=== PATIENT | male | born 1985 | race Caucasian/White ===

== ENCOUNTER 2017-06-19 19:45 | Emergency (ER) | payer BC ==
--- NOTE | 2017-06-19 20:39 | ER Document Report ---
ED General - General Chief Complaint: Skin Problem Stated Complaint: SKIN ISSUE Time Seen by Provider: 06/19/17 20:04 Notes: Patient is a 31 year old male who presents to the ED complaining of rash for one week. He states he started prozac, cardizem, prilosec at the end of April for PVC's. He states he was doing well until last week when he had gradual onset of rash on his face, back and extremities with facial swelling that has improved over the week after steroids and antiinflammatories. He otherwise admits to one episode of syncope because he stood up to fast. Otherwise denies dizzyness, chest pain, nausea, joint pain TRAVEL OUTSIDE OF THE [place] IN LAST 30 DAYS: No - Related Data Allergies/Adverse Reactions: No Known Allergies Allergy (Verified 06/19/17 19:45) Past Medical History - Social History Smoking Status: Never Smoker Family History: Reviewed & Not Pertinent Review of Systems - Review of Systems Constitutional: No symptoms reported EENT: No symptoms reported Cardiovascular: No symptoms reported Respiratory: No symptoms reported Gastrointestinal: No symptoms reported Musculoskeletal: No symptoms reported Skin: See HPI Neurological/Psychological: See HPI -: Yes All other systems reviewed and negative Physical Exam - Vital signs Vitals: Temp Pulse Resp BP Pulse Ox 98.1 F 99 18 110/68 97 06/19/17 19:51 06/19/17 19:51 06/19/17 19:51 06/19/17 19:51 06/19/17 19:51 - Notes Notes: PHYSICAL EXAM GENERAL: Alert, interacts well. HEAD: Normocephalic, atraumatic. EYES: Pupils equal, round, and reactive to light. Extraocular movements intact. LUNGS: Clear to auscultation bilaterally, no wheezes, rales, or rhonchi. No respiratory distress. HEART: Regular rate and rhythm. No murmurs, gallops, or rubs. ABDOMEN: Soft, nondistended, nontender. No guarding, rebound, or rigidity.. Bowel sounds present in all 4 quadrants. EXTREMITIES: Moves all 4 extremities spontaneously. No edema, radial and dorsalis pedis pulses 2/4 bilaterally. No cyanosis. NEUROLOGICAL: Alert and oriented x4. Normal speech. PSYCH: Normal affect, normal mood. SKIN: Warm, dry, normal turgor. No evidence of malar rash. Diffuse blanching rash along hands UE's, back, mild erythema on face Course - Re-evaluation Re-evalutation: 06/19/17 22:33 Patient is a 31 year old male who is hemodynamically stable, no acute distress and afebrile. Presentation is likely related to drug reaction most likely with his Prozac. Low clinical suspicion for lupus flare given no evidence of leukopenia, malar rash or joint pain. No evidence of EKG changes or concerns for persistent PVCs on monitor. Troponin negative, Heart score less than 3. Discussed with patient to discontinue his Prozac and follow-up with his primary care provider tomorrow as scheduled. Patient agrees with plan stable for discharge home. Regarding his syncope, consistent with vasovagal syncope - Vital Signs Vital signs: Temp Pulse Resp BP Pulse Ox 98.1 F 99 12 122/78 98 06/19/17 19:51 06/19/17 19:51 06/19/17 22:01 06/19/17 22:01 06/19/17 22:01 - Laboratory Result Diagrams: 06/19/17 20:55 06/19/17 20:55 Laboratory results interpreted by me: 06/19/17 06/19/17 20:55 20:55 WBC 12.8 H RBC 5.79 H Hgb 17.6 H Absolute Neutrophils 8.8 H C-Reactive Protein 17.9 H - EKG Interpretation by Nm EKG shows normal: Sinus rhythm Rate: Normal Rhythm: NSR When compared to previous EKG there are: No significant change Discharge - Discharge Clinical Impression: Rash Syncope Qualifiers: Syncope type: vasovagal syncope Qualified Code(s): R55 - Syncope and collapse Condition: Good Disposition: HOME, SELF-CARE Instructions: Syncopal Episode ([facility]) Additional Instructions: Your rash today is likely related to one of your new medications. I recommend to stop taking your prozac and follow up with your primary care provider tomorrow as scheduled. Forms: Return to Work
[2017-06-19 21:14] LABS: ABSOLUTE EOSINOPHILS # (AUTO) 0.1 10^3/uL (0.0-0.6); ABSOLUTE MONOCYTES (AUTO) 0.8 10^3/uL (0.1-1.4); ABSOLUTE NEUT (AUTO) 8.8 10^3/uL (1.7-8.2); BASOPHILS % (AUTO) 0.3 % (0-2); EOSINOPHILS % (AUTO) 1.1 % (0-6); HEMOGLOBIN 17.6 g/dL (13.5-17.0); LYMPHOCYTES % (AUTO) 23.2 % (13-45); MEAN CORPUSCULAR HEMOGLOBIN 30.3 pg (27.0-33.4); MEAN CORPUSCULAR HGB CONC 35.1 g/dL (32.0-36.0); MEAN CORPUSCULAR VOLUME 86 fl (80-97); MONOCYTES % (AUTO) 6.4 % (3-13); PLATELET COUNT 240 10^3/uL (150-450); RED BLOOD COUNT 5.79 10^6/uL (4.35-5.55); TOTAL CELLS COUNTED % (AUTO) 100 %; WHITE BLOOD COUNT 12.8 10^3/uL (4.0-10.5)
[2017-06-19 21:28] LABS: ANION GAP 10 (5-19); BLOOD UREA NITROGEN 13 mg/dL (7-20); C-REACTIVE PROTEIN 17.9 mg/L (<10.0); CALCIUM 9.1 mg/dL (8.4-10.2); CARBON DIOXIDE 27 mmol/L (22-30); CHLORIDE 102 mmol/L (98-107); GLUCOSE 91 mg/dL (75-110); POTASSIUM 3.6 mmol/L (3.6-5.0); SODIUM 138.9 mmol/L (137-145)
[2017-06-19 21:52] LABS: ERYTHROCYTE SEDIMENTATION RATE 3 mm/hr (0-15)
[2017-06-19] MEDS ORDERED: FAMOTIDINE 20 MG TABLET PO ONE (21:57)
[2017-06-19] MEDS ORDERED: METHYLPREDNISOLONE INJ 125 MG/2 ML SDV IM ONE (21:57)
[2017-06-19] MEDS ORDERED: DIPHENHYDRAMINE HCL 50 MG CAPSULE PO ONE (21:57)
[2017-06-19 22:43] VITALS: BP 122/78
--- NOTE | 2017-06-21 12:16 | EKG REPORT ---
SEVERITY:- NORMAL ECG - SINUS RHYTHM : Confirmed by: Briana Garcia MD 21-Jun-2017 12:15:21
== END 2017-06-19 22:43 | disposition home or self-care (01) ==
LOC: ER 19:45
DX: R55 Syncope and collapse (principal); R21 Rash and other nonspecific skin eruption
CPT/HCPCS: 93005; 99283; 96372; 36415; 85025; 85652; 86140; 80048; 84484; 93010; J2930